=== PATIENT | male | born 1980 | race Caucasian/White ===

== ENCOUNTER 2019-03-23 19:32 | Emergency (ER) | payer SELFPAY ==
--- NOTE | 2019-03-23 20:19 | ED.PDOC ---
History of Present Illness - General Chief Complaint: Abdominal Pain Stated Complaint: "crohn's flare up" Time Seen by Provider: 03/23/19 19:45 Information Source: patient, RN notes reviewed, Vital Signs reviewed Exam Limitations: no limitations - History of Present Illness Initial Comments: Pt is a 38 yo male with PMH of Crohn's Disease. States he sees a GI doctor in [place] and is not currently on any medications for Crohn's, but is here for work. For the past 2 days has had crampy abdominal pain, nausea, vomiting, diarrhea with streaks of blood in his stool. States this is his typical Crohn's flare and is requesting steroids and antibiotic which usually resolve his symptoms. Denies fever, chills, CP, SOB. Review of Systems - Review of Systems Constitutional: Denies: chills, fever, weakness EENTM: Denies: ear pain, nose congestion, throat pain Respiratory: Denies: cough, short of breath Cardiology: Denies: chest pain, palpitations, syncope Gastrointestinal/Abdominal: States: abdominal pain, diarrhea, nausea, vomiting Genitourinary: States: no symptoms reported Musculoskeletal: Denies: back pain, neck pain Skin: States: no symptoms reported Neurological: States: no symptoms reported Endocrine: States: no symptoms reported All other Systems: Reviewed and Negative Family Medical History - Family History Mother Living Status: Still Living Hx Family Hypertension: Yes Hx Cardiac Disease: Yes Hx Family Diabetes: Yes Hx Family Cancer: Yes Physical Exam - Physical Exam General Appearance: Alert, Comfortable, No apparent distress, Well Developed Eyes, Ears, Nose, Throat Exam: pharynx normal Neck: non-tender, full range of motion, supple Respiratory: chest non-tender, lungs clear, normal breath sounds, no accessory muscle use Cardiovascular/Chest: regular rate, rhythm, no edema, no murmur Gastrointestinal/Abdominal: other - Abdomen is soft, mild TTP LLQ. No guarding. Well healed veertical midline surgical incision. Back Exam: no CVA tenderness, no vertebral tenderness Extremity: normal range of motion, non-tender, normal inspection, no calf tenderness Neurologic: no motor/sensory deficits, alert, normal mood/affect Skin Exam: normal color, warm/dry Progress - Progress Progress: 03/23/19 21:12 Pt has h/o Crohn's disease and presents today with his typical flare. Pain and nausea improved with meds and IVF. Tolerating po fluids well now. Has leukocytosis. Abd is soft with no peritoneall signs. Abd xrays show no sign of obstruction. Will treat with prednisone, zofran and pain meds and f/u with PCP or GI doctor in 2-3 days for recheck. SRP given. - Results/Orders Results/Orders: EXAM: XR Abdomen, 2 Views and XR Chest, 1 View CLINICAL HISTORY: abd pain TECHNIQUE: Frontal view of the chest, frontal view of the abdomen/pelvis and upright or decubitus view of the abdomen. COMPARISON: No relevant prior studies available. FINDINGS: Lungs: Unremarkable. No consolidation. Pleural space: Unremarkable. No pneumothorax. Heart: Unremarkable. No cardiomegaly. Mediastinum: Unremarkable. Intraperitoneal space: No free air. Gastrointestinal tract: Unremarkable. No dilation. Bones/joints: Unremarkable. Soft tissues: There is increased soft tissue density of the entire abdomen with loss of the organ shadows. There is downward displacement of the colon which is normally aerated. The small bowel is not dilated. Mild to moderate colonic stool present in the rectum. Bowel resection staple lines noted in the left lower quadrant. IMPRESSION: Upper abdominal soft tissue prominence could reflect hepatosplenomegaly and/or ascites. No intestinal obstruction. 03/23/19 20:15 URINALYSIS Stat 03/23/19 20:16 IV:Start .ONCE Laboratory Results - last 24 hr 03/23/19 03/23/19 20:37 20:37 WBC 19.2 H RBC 4.43 L Hgb 13.8 L Hct 41.0 L MCV 92.5 MCH 31.2 H MCHC 33.7 RDW 14.4 Plt Count 316 MPV 8.2 Absolute Neuts (auto) 14.60 H Absolute Lymphs (auto) 3.20 Absolute Monos (auto) 1.00 H Absolute Eos (auto) 0.30 Absolute Basos (auto) 0.10 Neutrophils % 76.0 Lymphocytes % 16.6 L Monocytes % 5.5 Eosinophils % 1.4 Basophils % 0.5 Sodium 139 Potassium 3.5 L Chloride 103 Carbon Dioxide 28 Anion Gap 11.5 L BUN 16 Creatinine 0.85 BUN/Creatinine Ratio 18.8 Random Glucose 112 H Serum Osmolality 279.5 Calcium 9.7 Total Bilirubin 0.3 AST 20 ALT 19 Alkaline Phosphatase 71 Serum Total Protein 7.7 Albumin 4.3 Globulin 3.4 Albumin/Globulin Ratio 1.3 Lipase 54 H UA negative Departure - Departure Clinical Impression: Abdominal pain Qualifiers: Abdominal location: generalized Qualified Code(s): R10.84 - Generalized abdominal pain Crohn's disease Qualifiers: Gastrointestinal tract location: unspecified location Digestive disease complication type: with rectal bleeding Qualified Code(s): K50.911 - Crohn's disease, unspecified, with rectal bleeding Leukocytosis Qualifiers: Leukocytosis type: unspecified Qualified Code(s): D72.829 - Elevated white blood cell count, unspecified Time of Disposition: 21:15 Disposition: Discharge to Home or Self Care Condition: Good Departure Forms: ED Discharge - Pt. Copy, Patient Portal Self Enrollment Instructions: DI for Abdominal Pain-Adult Diet: bland diet Activity: increase activity as tolerated Prescriptions: Ondansetron HCl [Zofran] 4 mg PO Q6HR PRN #15 tab PRN Reason: Nausea Acetaminophen W/ Codeine [Tylenol W/ CODEINE #3] 1 tablet PO Q6H PRN #20 PRN Reason: Pain Methylprednisolone [Medrol Dose Royer] 4 mg PO DAILY 6 Days #21 tab Home Medications: Ambulatory Orders Acetaminophen W/ Codeine [Tylenol W/ CODEINE #3] 1 tablet PO Q6H PRN #20 03/23/19 Methylprednisolone [Medrol Dose Royer] 4 mg PO DAILY 6 Days #21 tab 03/23/19 Ondansetron HCl [Zofran] 4 mg PO Q6HR PRN #15 tab 03/23/19 Comments: Follow up with a PCP in 2-3 days for recheck. SRP given
[2019-03-23 20:25] VITALS: O2SAT 99
[2019-03-23] MEDS: SODIUM CHLORIDE 0.9% 1000ML 1,000 ML IVS ONE (20:43)
[2019-03-23] MEDS: methylPREDNISolone SODIUM SUC 125 MG/2 ML VIAL IV ONE (20:43)
[2019-03-23] MEDS: ONDANSETRON INJ 4 MG/2 ML VIAL IV ONE (20:44)
[2019-03-23] MEDS: MORPHINE SULFATE INJ 10 MG/ML VIAL IV ONE ×2 (20:44→21:30)
--- NOTE | 2019-03-23 21:07 | RAD ---
EXAM: XR Abdomen, 2 Views and XR Chest, 1 View CLINICAL HISTORY: abd pain TECHNIQUE: Frontal view of the chest, frontal view of the abdomen/pelvis and upright or decubitus view of the abdomen. COMPARISON: No relevant prior studies available. FINDINGS: Lungs: Unremarkable. No consolidation. Pleural space: Unremarkable. No pneumothorax. Heart: Unremarkable. No cardiomegaly. Mediastinum: Unremarkable. Intraperitoneal space: No free air. Gastrointestinal tract: Unremarkable. No dilation. Bones/joints: Unremarkable. Soft tissues: There is increased soft tissue density of the entire abdomen with loss of the organ shadows. There is downward displacement of the colon which is normally aerated. The small bowel is not dilated. Mild to moderate colonic stool present in the rectum. Bowel resection staple lines noted in the left lower quadrant. IMPRESSION: Upper abdominal soft tissue prominence could reflect hepatosplenomegaly and/or ascites. No intestinal obstruction. Electronically signed by: Beatrice Castelan MD 03/23/2019 9:05 PM SURGERY ATTENDANT
[2019-03-23 21:50] VITALS: BP 132/95; TEMP 96.8
== END 2019-03-23 21:50 | disposition home or self-care (01) ==
LOC: ER 19:32
DX: K50.911 Crohn's disease, unspecified, with rectal bleeding (principal); D72.829 Elevated white blood cell count, unspecified